=== PATIENT | female | born 1985 | race African-American/Black ===

== ENCOUNTER 2016-08-10 15:08 | Emergency (ER) | payer SELFPAY ==
[~2016-08-10] VITALS: Ht 152.4 cm; Wt 54.4 kg
[2016-08-10 15:21] VITALS: BP 142/85
[2016-08-10 16:00] LABS: BILIRUBIN,URINE NEGATIVE (NEG); GLUCOSE,URINE NEGATIVE (NEG); NITRITE,URINE NEGATIVE (NEG); PH,URINE 6.5; PROTEIN,URINE NEGATIVE (NEG-TRACE)
[2016-08-10] MEDS ORDERED: METRONIDAZOLE 500 MG TABLET. PO ONE (16:00)
[2016-08-10] MEDS ORDERED: CEFTRIAXONE IM 250 MG VIAL. IM ONE (16:00)
[2016-08-10] MEDS ORDERED: AZITHROMYCIN 250 MG TABLET PO ONE (16:00)
--- NOTE | 2016-08-10 16:01 | PHYS DOC ---
Past Medical History Past Medical History: Other Additional Past Medical Histor: "pinched nerve" Past Surgical History: No Surgical History Alcohol Use: None Drug Use: None Adult General Chief Complaint Chief Complaint: VAGINAL PROBLEM HPI HPI Patient is a 31 year old female presents emergency department stating that she' s been having white vaginal discharge for about a week. She states that she has sexually active with one partner. She denies using any type of protection. Patient states that she has been having lower abdominal cramping denies any back pain or discomfort denies any urinary frequency urgency or pain with urination. She has a history of atrial vaginosis she has had chlamydia in the past. Review of Systems Review of Systems Constitutional: Denies fever or chills [] Eyes: Denies change in visual acuity, redness, or eye pain [] HENT: Denies nasal congestion or sore throat [] Respiratory: Denies cough or shortness of breath [] Cardiovascular: No additional information not addressed in HPI [] GI: Denies abdominal pain, nausea, vomiting, bloody stools or diarrhea [] : Denies dysuria or hematuria. C/o white vaginal discharge Musculoskeletal: Denies back pain or joint pain [] Integument: Denies rash or skin lesions [] Neurologic: Denies headache, focal weakness or sensory changes [] Current Medications Current Medications Current Medications Medications (Trade) Dose Ordered Sig/Samuel Start Time Stop Time Status Last Admin Dose Admin Azithromycin (Zithromax) 1,000 mg 1X ONCE 08/10/16 16:00 08/10/16 16:01 DC 08/10/16 16:08 1,000 MG Ceftriaxone Sodium (Rocephin Im) 250 mg 1X ONCE 08/10/16 16:00 08/10/16 16:01 DC 08/10/16 16:13 250 MG Metronidazole (Flagyl) 2,000 mg 1X ONCE 08/10/16 16:00 08/10/16 16:01 DC 08/10/16 16:08 2,000 MG Allergies Allergies Allergies Coded Allergies Type Severity Reaction Last Updated Verified Penicillins Allergy Unknown face swelling 01/18/14 Yes Physical Exam Physical Exam Constitutional: Well developed, well nourished, no acute distress, non-toxic appearance. [] HENT: Normocephalic, atraumatic, bilateral external ears normal, oropharynx moist, no oral exudates, nose normal. [] Eyes: PERRLA, EOMI, conjunctiva normal, no discharge. [] Neck: Normal range of motion, no tenderness, supple, no stridor. [] Cardiovascular:Heart rate regular rhythm, no murmur [] Lungs & Thorax: Bilateral breath sounds clear to auscultation [] Abdomen: Bowel sounds hypoactive, soft, no tenderness, no masses, no pulsatile masses. [] Skin: Warm, dry, no erythema, no rash. [] Back: No tenderness Extremities: No tenderness, no cyanosis, no clubbing, ROM intact, no edema. [] Neurologic: Alert and oriented X 3, normal motor function, normal sensory function, no focal deficits noted. [] Psychologic: Affect normal, judgement normal, mood normal. Vaginal exam: Speculum exam patient with white vaginal discharge noted in the vault. Manual exam no CMT tenderness no adnexal tenderness [] Current Patient Data Vital Signs Vital Signs Date Time Temp Pulse Resp B/P Pulse Ox O2 Delivery O2 Flow Rate FiO2 08/10/16 15:21 98.2 85 18 98 Room Air 98.2 Lab Values Laboratory Tests Test 08/10/16 14:40 08/10/16 15:30 POC Urine HCG, Qualitative Hcg negative (Negative) Urine Collection Type Unknown Urine Color Yellow Urine Clarity Clear Urine pH 6.5 Urine Specific Benson 1.015 Urine Protein Negativemg/dL (NEG-TRACE) Urine Glucose (UA) Negativemg/dL (NEG) Urine Ketones (Stick) Negativemg/dL (NEG) Urine Blood Negative (NEG) Urine Nitrite Negative (NEG) Urine Bilirubin Negative (NEG) Urine Urobilinogen Dipstick 1.0mg/dL (0.2 mg/dL) Urine Leukocyte Esterase Negative (NEG) Urine RBC 0/HPF (0-2) Urine WBC 1-4/HPF (0-4) Urine Squamous Epithelial Cells Mod/LPF Urine Bacteria 0/HPF (0-FEW) Urine Mucus Mod/LPF Microbiology 08/10/16 Wet Prep - Final, Complete EKG EKG [] Radiology/Procedures Radiology/Procedures [] Course & Med Decision Making Course & Med Decision Making Pertinent Labs and Imaging studies reviewed. (See chart for details) Patient will be prophylactically be treated for STDs. She'll be provided Rocephin and Zithromax and Flagyl. Urinalysis is still pending at this time. She was positive for Trichomonas as well as bacterial vaginosis. Patient will be discharged home on Flagyl. Signs and symptoms to return back to emergency department as been provided. Patient agrees with discharge instructions treatment regimens and follow-up recommendations. [] Dragon Disclaimer Dragon Disclaimer This electronic medical record was generated, in whole or in part, using a voice recognition dictation system. Departure Departure Impression: Primary Impression: Trichomonas vaginitis Additional Impression: Bacterial vaginosis Disposition: HOME, SELF-CARE Condition: STABLE Referrals: NO PCP (PCP) Patient Instructions: Bacterial Vaginosis, [id number], Trichomoniasis-Brief Additional Instructions: Activity as tolerated. Your test results was positive for Trichomonas. You have been treated here in the emergency department. You will need to notify your sexual partner that the test was positive and he needs to be treated for sexual transmitted infections. Avoid sexual intercourse for the next 2 weeks. Medication as prescribed. Follow-up to primary care physician as needed in 5-7 days. Return back to emergency prior signs symptoms of become worse. Scripts Metronidazole (Flagyl)500 Mg Tablet1 Tab PO BID #14 TAB Prov:ABHI JONES APRN 08/10/16 Problem Qualifiers ABHI JONES APRN Aug 10, 2016 16:01
[2016-08-10 16:24] LABS: BACTERIA,URINE 0 /HPF (0-FEW); RBC,URINE 0 /HPF (0-2); SQUAMOUS EPITHELIAL CELL,UR MOD /LPF
[2016-08-10] MEDS ORDERED: METR500T PO (16:33)
== END 2016-08-10 16:47 | disposition home or self-care (01) ==
LOC: ER 15:08
DX: A59.01 Trichomonal vulvovaginitis (principal); N76.0 Acute vaginitis; Z88.0 Allergy status to penicillin
CPT/HCPCS: 81001; 81025; 87491; 87591; 96372; 99284; J0696; Q0111; Q0144; 36415